=== PATIENT | female | born 1990 | race Caucasian/White ===

== ENCOUNTER 2024-08-23 06:16 | Day surgery (SDC) | payer OTHER, SELFPAY ==
[2024-08-23 08:34] LABS: HCG, Urine Qualitative Screen Negative
== END 2024-08-23 09:51 | disposition home or self-care (01) ==
LOC: GI 06:16
PROVIDERS: ATTENDING PHYSICIAN Surgery
DX: D12.3 Benign neoplasm of transverse colon (principal); R10.84 Generalized abdominal pain; K64.9 Unspecified hemorrhoids
CPT/HCPCS: 45380; 88305; 81025